=== PATIENT | male | born 1935 | race Caucasian/White ===

== ENCOUNTER 2019-04-09 12:27 | Inpatient (IN) | payer OTHER ==
[~2019-04-09] VITALS: Ht 170.2 cm; Wt 74.4 kg
[~2019-04-09 12:27] MED LIST: LISINOPRIL20 MG PO; TOPROL XL25 MG PO
[2019-04-09 12:30] VITALS: BP 152/77
[2019-04-09] MEDS ORDERED: FOSAMAX 70 MG T70 MG PO (12:34)
[2019-04-09] MEDS ORDERED: SINGULAIR 10 MG10 M1 PO (12:35)
[2019-04-09] MEDS ORDERED: FLOMAX0.4 MG PO (12:35)
[2019-04-09] MEDS ORDERED: SYMBICORT160 MCG/4. INH (12:35)
[2019-04-09] MEDS ORDERED: ROPINIROLE HCL0.5 MG PO (12:35)
[2019-04-09 12:47] LABS: ABSOLUTE EOSINOPHILS 0.2 thou/uL (0.0-0.7); ABSOLUTE LYMPHOCYTES 1.4 thou/uL (0.8-5.3); ABSOLUTE MONOCYTES 0.7 thou/uL (0.0-1.2); ABSOLUTE NEUTROPHILS 3.3 thou/uL (1.6-8.1); BASOPHILS 0.6 %; HEMATOCRIT 35.9 % (42.0-52.0); HEMOGLOBIN 11.8 gm/dL (14.0-18.0); LYMPHOCYTES 24.8 %; MCHC 32.7 g/dL (28.0-37.0); MCV 94.8 fL (80.0-100.0); MONOCYTES 13.4 %; MPV 6.3 fl. (7.2-11.1); NUCLEATED RBCS 0 /100WBC; PLATELET COUNT* 292 thou/uL (150-400); POLYS 58.2 %; RBC 3.79 mil/uL (4.50-6.00); RDW-CV 14.3 % (10.5-14.5); WBC 5.6 thou/uL (4.0-11.0)
[2019-04-09 13:04] LABS: ANION GAP 7 mmol/L (7-16); BUN 20 mg/dL (7-18); CALCIUM 10.1 mg/dL (8.5-10.1); CHLORIDE 102 mmol/L (98-107); CO2 28 mmol/L (21-32); GLUCOSE 129 mg/dL (70-99); POTASSIUM 4.1 mmol/L (3.5-5.1); SODIUM 137 mmol/L (136-145)
[2019-04-09 13:19] LABS: ALBUMIN 3.4 g/dL (3.4-5.0); ALKALINE PHOSPHATASE 117 U/L (46-116); NT-PRO BRAIN NAT PEPTIDE 215 pg/mL (<300); SGOT 16 U/L (15-37); SGPT 20 U/L (30-65); TOTAL BILIRUBIN 0.1 mg/dL (<0.1-1.0); TOTAL PROTEIN 7.6 g/dL (6.4-8.2); TROPONIN-I LEVEL <0.06 ng/mL (<0.06)
--- NOTE | 2019-04-09 16:25 | EKG ---
[place] [address] ELECTROCARDIOGRAM REPORT Name: FERNANDO BARRIOS Adeline Room: [place] [address] ADM IN .R.#: [id number] Admission: 04/09/19 Attend Phys: Tommie Dang MD Discharge: Date of : 37 Report #: [id number] THIS REPORT FOR: //name// [facility] ED Test Date: 2019-04-09 Test Time: 12:44:09 Pat Name: FERNANDO BARRIOS Department: Room: [facility] Gender: M Messaging Architect: : [id number] Requested By: Mario Floyd Order Number: [id number] MD: Cb Nevarez Measurements Intervals [place] Rate: 87 P: 44 ID: [id number] QRS: -6 QRSD: 105 T: 64 QT: 378 QTc: 455 Interpretive Statements Sinus rhythm Atrial premature complex Artifact in lead(s) III,aVF,V1,V4,V5,V6 Compared to ECG 03/18/2010 17:06:34 Atrial premature complex(es) now present Electronically Signed On 04-09-2019 16:24:59 CDT by Cb Nevarez [email or web address] <ELECTRONICALLY SIGNED> By: Cb Nevarez MD, [facility] 04/09/19 1624 1244 1244 Cb Nevarez MD, [facility] /EPI
[2019-04-09 16:56] VITALS: BP 127/64
[2019-04-09 20:50] VITALS: BP 123/50
[2019-04-10 00:35] VITALS: BP 88/45
[2019-04-10 02:14] VITALS: BP 95/47
--- NOTE | 2019-04-10 04:29 | NUR ---
RECEIVED REPORT FROM PHOTOVOLTAIC SOLAR CELL DESIGNER AND ASSUMED CARE OF PATIENT APPROX 2044 POST EGD. PATIENT A&OX4. TOLERATING SOFT FOODS AND LIQUIDS. DENIES PAIN AND DISCOMFORT. PROGRESSING TOWARDS GOALS AND DISCHARGE. CALL LIGHT WITHIN REACH
[2019-04-10 04:57] VITALS: BP 99/49
[2019-04-10 05:03] LABS: ABSOLUTE LYMPHOCYTES 0.5 thou/uL (0.8-5.3); ABSOLUTE MONOCYTES 0.3 thou/uL (0.0-1.2); HEMATOCRIT 29.5 % (42.0-52.0); LYMPHOCYTES 5.5 %; MCH 31.8 pg (26.0-34.0); MCHC 33.8 g/dL (28.0-37.0); MPV 6.2 fl. (7.2-11.1); NUCLEATED RBCS 0 /100WBC; PLATELET COUNT* 233 thou/uL (150-400); POLYS 91.5 %; RBC 3.14 mil/uL (4.50-6.00); WBC 9.8 thou/uL (4.0-11.0)
[2019-04-10 05:07] LABS: CALCIUM 9.2 mg/dL (8.5-10.1); CREATININE 1.1 mg/dL (0.6-1.3); POTASSIUM 4.5 mmol/L (3.5-5.1)
[2019-04-10 07:05] LABS: ESR (SEDRATE) 63 mm/hr (0-20)
[2019-04-10 08:01] VITALS: BP 116/51
--- NOTE | 2019-04-10 08:56 | NUR ---
ASSUMED CARE OF PT THIS AM AROUND 0715- JUNIOR ACCOUNTANT IN PLACE ORDERED, TRACING SB- UPON ASSESSMENT PT NOTED TO BE RESTING IN BED, AT SIDE-PT A&O X4- CONTINENT OF BOWEL AND BLADDER- ASSIST X1 WITH TRANSFERS- EXPIRATORY WHEEZES NOTED, RESP EVEN AND UN-LABORED- VSS, O2 SAT 97% ON RA- ABD SOFT/ROUND/NON-TENDER, BS X4 QUADS- LAST BM REPORTED 04/09/19- IV TO RIGHT AC NOTED TO FALL OUT, NEW 20 GAUGE IV PLACED THIS AM TO LEFT FA AND SL- MECHANICAL ALTERED DIET NOTED IN PLACE, GOOD PO INTAKE NOTED THIS AM WITH BREAKFAST- DENIES ANY C/O PAIN/DISCOMFORT AT THIS TIME- CALL LIGHT AND PERSONAL BELONGIGNS WITH IN REACH- HOURLY ROUNDS IN PLACE R/T SAFETY/NEEDS- ALL NEEDS MET AT THIS TIME-WCTM
[2019-04-10] MEDS ORDERED: TOPROL XL25 MG PO (11:18)
[2019-04-10] MEDS ORDERED: PREDNISONE 10 M10 MG PO (11:22)
[2019-04-10] MEDS ORDERED: ZANTAC 150MG T150 MG PO (11:23)
[2019-04-10] MEDS ORDERED: AUGMENTIN 875-1 EACH PO (11:24)
[2019-04-10] MEDS ORDERED: OMEPRAZOLE40 MG PO (11:25)
[2019-04-10 11:33] VITALS: BP 116/51
--- NOTE | 2019-04-10 12:02 | NUR ---
ORDERS RECEIVED FOR OKAY TO D/C HOME THIS SHIFT PER AND GI- IV TO RIGHT AC D/C'D ALONG WITH BEADING MACHINE OPERATOR PRIOR TO D/C- D/C EDUCATION/TEACHING/NEEDED FOLLOW UP'S GIVEN TO PT AND PRIOR TO D/C WITH ALL QUESTIONS AND CONCERNS ADDRESSED- WRITTEN EDUCATION ALONG WITH SCRIPTS PROVIDED TO PT AND AT TIME OF D/C- BELONGINGS PACKED AND ACCOUNTED FOR PER PT AND - PT ESCORTED PER VOLUNTEER VIA W/C WITH BELONGINGS; AT SIDE AT 1205- NO PROBLEMS TO NOTE AT TIME OF D/C
--- NOTE | 2019-04-13 16:06 | CON ---
[address] [address] CONSULTATION Name: SOPHIEFERNANDO E Room: [address] IN M.R.#: [id number] Admission: 04/09/19 Attend Phys: Tommie Dang MD Discharge: 04/10/19 Date of : 37 Report #: [id number] THIS REPORT FOR: //name// CC: Tommie Dang MD [facility] physician/PCP Yonis Silverio DATE OF SERVICE: 04/09/2019 REFERRING DOCTOR: Tommie Dang MD REASON FOR CONSULTATION: Dysphagia, possible food bolus obstruction. IMPRESSION: 1. Suspected food bolus obstruction with ____ with underlying history of chronic solid dysphagia. 2. Abnormal CAT scan with esophagus filled with food and/or fluid noted on today's exam. 3. Possible aspiration pneumonitis secondary to #1. RECOMMENDATIONS: 1. We will proceed with emergent upper endoscopy tonight under general endotracheal anesthesia to protect his airway. 2. We will keep the patient in the hospital overnight and monitor his ability to eat postprocedure and make sure his respiratory issues resolved. 3. I have discussed his plans with the patient as well as the and they are agreeable to proceed. HISTORY OF PRESENT ILLNESS: The patient is a very pleasant 83-year-old white male who had been eating some ____ earlier today and again having issues with eating. He could not eat anything further and started throwing up and started having some issues with breathing. He also began problems with shortness of breath and cough. He presented to the Emergency Room with these complaints and was found to have possible aspiration pneumonitis secondary to the food bolus obstruction. He states he has a longstanding history of chronic dysphagia and has undergone upper endoscopies in the past by Dr. Kearns. I reviewed records and the patient has a history of Schatzki's ring which has been dilated in the past. It has been a number of years since his last examination. He denies any problem with liquids by themselves but has problems with solids, especially chicken meat. He denies any problem with chronic heartburn or indigestion. He denies associated weight loss or any other issues. He denies any hematemesis, melena or hematochezia. He presented to the Emergency Room for further evaluation and treatment. ALLERGIES: [place] [address] CONSULTATION Name: FERNANDO BARRIOS Room: [address]#: [id number] Admission: 04/09/19 Attend Phys: Tommie Dang MD Discharge: 04/10/19 Date of : 37 Report #: [id number] MEDICATIONS: Lisinopril, Fosamax, Flomax, ropinirole, Singulair and Symbicort. PAST MEDICAL HISTORY: Remarkable for hypertension, BPH and COPD. He has had a history of sinus surgery and basal cell cancer surgery as well. SOCIAL HISTORY: The patient previously smoked, drinks occasional alcohol. FAMILY HISTORY: Negative. PHYSICAL EXAMINATION: GENERAL: Pleasant 83-year-old gentleman who is barrel chested. CARDIOPULMONARY: Revealed a regular rate and rhythm. He had some wheezes and some rhonchi. ABDOMEN: Soft and not tender. No rebound or guarding noted. LABORATORY DATA: Revealed a white count of 5.6, hemoglobin 11.8, platelet count 292,000, MCV is 94.8 and RDW 14.3. His sodium is 137, potassium 4.1, chloride 102, bicarbonate 28, BUN 20, creatinine is 1.2 and GFR 72. Total bilirubin 0.1, alkaline phosphatase 117, AST 16, ALT 20 and albumin is 3.4. His INR is 1.0. IMAGING: CT scan was reviewed. It revealed marked esophageal dilation with debris within the esophagus with possible thickening of the distal esophagus. There also appeared to be some endobronchial debris, which is possibly aspirate debris or a plug. It is less likely there is endobronchial mass. He also has a hemangioma within the liver. DISCUSSION: At the present time, the patient appeared to be an adequate candidate to undergo endoscopic evaluation. We will proceed with upper endoscopy under general endotracheal anesthesia to protect his airway and make further recommendations thereafter. I have discussed the plans with the patient as well as and they are agreeable to proceed. ADDENDUM: In talking with the patient, the patient does take aspirin intermittently. He took 2 full-strength aspirin last night. For this reason, depending on what we find, he may not be a candidate for endoscopic dilation today due to having had aspirin within the last 24 hours. <ELECTRONICALLY SIGNED> By: Jesus Diez DO 04/13/19 1606 1620 [id number] Diez DO /nt
--- NOTE | 2019-04-15 12:55 | CON ---
[address] [address] CONSULTATION Name: FERNANDO BARRIOS Room: [address] IN M.R.#: [id number] Admission: 04/09/19 Attend Phys: Tommie Dang MD Discharge: 04/10/19 Date of : 37 Report #: [id number] THIS REPORT FOR: //name// CC: Tommie Dang [facility] physician/PCP [facility] Yonis Silverio DATE OF SERVICE: 04/09/2019 REASON FOR CONSULTATION: Possible food bolus obstruction. IMPRESSION: 1. Food bolus obstruction with underlying history of chronic solid dysphagia. 2. Abnormal CAT scan with esophagus filled with flood and/or fluid. 3. Possible aspiration pneumonitis secondary to #1. RECOMMENDATIONS: 1. We will proceed with emergent upper endoscopy tonight under general endotracheal anesthesia to protect his airway. 2. We will keep the patient in the hospital overnight and monitor stability post-procedure. I have discussed the plans with the patient as well as and they are agreeable to the same. HISTORY OF PRESENT ILLNESS: The patient is a very pleasant 83-year-old white male with a history of dysphagia in the past. He was previously followed by Dr. Savage and has undergone endoscopic studies of his upper GI tract with dilations in the past. He had been eating some with his today and started having issues with inability to swallow. He also started to have problem with coughing and choking. He presents to the Emergency Room because of the same and it was felt that he probably has some element of aspiration pneumonitis. He underwent a CT scan of the chest, which revealed dilated esophagus with a lot of food and/or fluid within the same. He presents now for emergent endoscopy. He denies any problem with chronic heartburn or indigestion. He is not taking anything for the same. His dysphagia has not been progressive. He denies any problem with liquids. He denies any problem with chest discomfort and chest pain other than the fact that he felt as if he could not swallow. He denies any hematemesis, melena or hematochezia. His weight has been stable. ALLERGIES: None. MEDICATIONS: Lisinopril, Fosamax, Flomax, ropinirole, Singulair, and Symbicort. PAST MEDICAL HISTORY: Remarkable for hypertension, osteoporosis, [place] [address] CONSULTATION Name: SOPHIERUSSELL LYNNFRANKLIN Lr Room: [address]#: [id number] Admission: 04/09/19 Attend Phys: Tommie Dang MD Discharge: 04/10/19 Date of : 37 Report #: [id number] some seasonal allergies and asthma. PAST SURGICAL HISTORY: He has had previous tonsillectomy, sinus surgery. SOCIAL HISTORY: The patient is , does not smoke, occasionally drinks alcohol. FAMILY HISTORY: Negative. PHYSICAL EXAMINATION: GENERAL: Pleasant 83-year-old gentleman who is awake and alert. CARDIOPULMONARY: Revealed a regular rate and rhythm. LUNGS: Clear. ABDOMEN: Soft and not tender. No rebound or guarding noted. LABORATORY DATA: His laboratory tests from the ER revealed a white count of 5.6, hemoglobin 11.8, platelet count 292,000, MCV is 94.8 and RDW is 14.3. Sodium is 137, potassium 4.1, chloride 102, bicarbonate is 28, BUN 20 and creatinine 1.0, GFR 72. Total bilirubin 0.1, alkaline phosphatase 117, AST 16, ALT 20 and albumin 3.4. His INR is 1.0. IMAGING DATA: CT scan was reviewed. He also has a cyst in his liver. DISCUSSION: At the present time, the patient appears to be suitable candidate to undergo endoscopic evaluation. We will proceed with upper endoscopy tonight and make further recommendations thereafter. I have discussed these plans with the patient as well and he is agreeable to the same. <ELECTRONICALLY SIGNED> By: Jesus Diez DO 04/15/19 1255 2135 [id number] Diez DO /nt
== END 2019-04-10 12:06 | disposition home or self-care (01) | DRG 177 ==
LOC: M.ERS 12:27 → M.TBA-ER 14:36 → M.2W 14:36
PROVIDERS: Family Medicine; Internal Medicine Gastroenterology; ADMIT Internal Medicine
PROC: 0DJ08ZZ Inspection of Upper Intestinal Tract, Via Natural or Artificial Opening Endoscopic (ICD-10-PCS; principal; 2019-04-09)
DX: J69.0 Pneumonitis due to inhalation of food and vomit (principal); J96.90 Respiratory failure, unspecified, unspecified whether with hypoxia or hypercapnia; T18.128A Food in esophagus causing other injury, initial encounter; K31.9 Disease of stomach and duodenum, unspecified; I10 Essential (primary) hypertension; J44.9 Chronic obstructive pulmonary disease, unspecified; K20.9 Esophagitis, unspecified; R93.3 Abnormal findings on diagnostic imaging of other parts of digestive tract; X58.XXXA Exposure to other specified factors, initial encounter; K22.2 Esophageal obstruction; K31.89 Other diseases of stomach and duodenum; R13.14 Dysphagia, pharyngoesophageal phase; T18.108A Unspecified foreign body in esophagus causing other injury, initial encounter; Z79.82 Long term (current) use of aspirin; Z79.899 Other long term (current) drug therapy; Y93.89 Activity, other specified; Y92.89 Other specified places as the place of occurrence of the external cause; Y99.8 Other external cause status

== ENCOUNTER 2019-04-15 12:33 | Emergency (ER) | payer OTHER ==
[~2019-04-15] VITALS: Ht 170.2 cm; Wt 73.5 kg
[~2019-04-15 12:33] MED LIST changes: +AUGMENTIN 875-1 EACH PO; +FLOMAX0.4 MG PO; +FOSAMAX 70 MG T70 MG PO; +OMEPRAZOLE40 MG PO; +PREDNISONE 10 M10 MG PO; +ROPINIROLE HCL0.5 MG PO; +SINGULAIR 10 MG10 M1 PO; +SYMBICORT160 MCG/4. INH; +ZANTAC 150MG T150 MG PO
[2019-04-15 13:22] LABS: HEMATOCRIT 32.6 % (42.0-52.0); HEMOGLOBIN 10.7 gm/dL (14.0-18.0); MCH 31.2 pg (26.0-34.0); MCHC 32.8 g/dL (28.0-37.0); MCV 95.2 fL (80.0-100.0); MPV 5.8 fl. (7.2-11.1); NUCLEATED RBCS 0 /100WBC; PLATELET COUNT* 286 thou/uL (150-400); RBC 3.42 mil/uL (4.50-6.00); RDW-CV 14.8 % (10.5-14.5); WBC 7.3 thou/uL (4.0-11.0)
[2019-04-15 13:29] LABS: CALCIUM 9.1 mg/dL (8.5-10.1); CREATININE 1.3 mg/dL (0.6-1.3); POTASSIUM 5.1 mmol/L (3.5-5.1)
[2019-04-15 13:34] LABS: ALBUMIN 2.9 g/dL (3.4-5.0); TOTAL BILIRUBIN 0.3 mg/dL (<0.1-1.0); TOTAL PROTEIN 6.4 g/dL (6.4-8.2)
[2019-04-15 13:41] LABS: ABSOLUTE LYMPHOCYTES 1.2 thou/uL (0.8-5.3); ABSOLUTE MONOCYTES 0.1 thou/uL (0.0-1.2); METAMYELOCYTES 1 %; MYELOCYTES 1 %; PLATELET ESTIMATE ADEQUATE
[2019-04-15 15:57] VITALS: BP 109/70
== END 2019-04-15 15:57 | disposition home or self-care (01) ==
LOC: M.ERS 12:33
PROVIDERS: Emergency Medicine
DX: K92.2 Gastrointestinal hemorrhage, unspecified (principal); I10 Essential (primary) hypertension; Z85.46 Personal history of malignant neoplasm of prostate; Z85.828 Personal history of other malignant neoplasm of skin; Z90.89 Acquired absence of other organs